=== PATIENT | female | born 1965 | race Caucasian/White ===

== ENCOUNTER 2023-11-28 09:26 | Day surgery (SDC) | payer BC ==
[2023-11-28] MEDS ORDERED: Sodium Bicarbonate 2.5 MEQ/5 ML SDV ONE (09:54)
[2023-11-28] MEDS ORDERED: Lidocaine 1% PF 5 ML VIAL ONE (09:54)
[2023-11-28 12:10] VITALS: BP 111/55; TEMP 98.4
== END 2023-11-28 12:22 | disposition home or self-care (01) ==
LOC: CSHRAD 09:26
PROVIDERS: ATTEND Nurse Practitioner Family
PROC: B02BYZZ Computerized Tomography (CT Scan) of Spinal Cord using Other Contrast (ICD-10-PCS; principal; 2023-11-28)
DX: M54.12 Radiculopathy, cervical region (principal); M48.02 Spinal stenosis, cervical region
CPT/HCPCS: 62302; 72052; 72126